=== PATIENT | female | born 1970 | race Caucasian/White ===

== ENCOUNTER 2017-10-30 07:20 | Emergency (ER) | payer BC, OTHER ==
[~2017-10-30] VITALS: Ht 165.1 cm; Wt 110.6 kg
[2017-10-30 07:20] VITALS: BP 156/79; PULSE 77; RESP 18; TEMP 97.7; O2SAT 96
[2017-10-30] MEDS ORDERED: COQ130CA (07:34)
[2017-10-30] MEDS ORDERED: ESTRTAB12 PO (07:34)
[2017-10-30] MEDS ORDERED: ONE-TAB14 (07:34)
[2017-10-30] MEDS ORDERED: SIMV40TA PO (07:34)
[2017-10-30] MEDS ORDERED: LEXA10TA PO (07:34)
[2017-10-30] MEDS ORDERED: FISHOIL PO (07:34)
[2017-10-30] MEDS ORDERED: PRED20 PO (07:43)
[2017-10-30] MEDS ORDERED: BACT800T5 PO (07:43)
--- NOTE | 2017-10-30 07:47 | PD ---
HPI Chief Complaint: Bite or Sting Time Seen by Provider: 07:37 Travel History International Travel<30 days: No Contact w/Intl Traveler<30days: No Traveled to known affect area: No History of Present Illness HPI The patient was seen and examined in the presence of the nurse. This patient is having swelling and redness and discomfort in her left arm. She was stung by a wasp 3 times in that left arm 3 days ago. In the upper arm it continues to spread. Denies fever or drainage. Symptom severity is moderate PFSH Past Medical History High Cholesterol: Yes Diminished Hearing: No Tetanus Vaccination: < 5 Years ?: Not Past Surgical History Section: Yes Hysterectomy: Yes Social History Alcohol Use: Yes (SOC) Tobacco Use: No Substance Use: No Allergies-Medications (Allergen,Severity, Reaction): Coded Allergies: No Known Allergies (Unverified , 10/30/17) Reported Meds & Prescriptions Reported Meds & Active Scripts Active Reported One Daily Multivitamin (Multivitamin) 1 Each Tablet Estroven + Energy Maximum ([employer] Natural Products) 400 Mcg Tab 400 Mg PO DAILY [Fish Oil] 1,000 Mg PO Coq10 (Coenzyme Q10 (Ubidecarenone)) 30 Mg Cap Simvastatin 40 Mg Tab 40 Mg PO HS Lexapro (Escitalopram Oxalate) 10 Mg Tab 10 Mg PO DAILY Review of Systems General / Constitutional: No: Fever HENT: No: Headaches Cardiovascular: No: Chest Pain or Discomfort Respiratory: No: Cough Physical Exam Narrative RESPIRATORY: Respiratory effort unlabored, no retractions or use of accessory muscles. Breath sounds are clear and symmetric. NECK: Symmetrical appearance, midline trachea. No mass or crepitus. Thyroid without enlargement, tenderness, or mass. Throat clear without facial swelling Left arm: There is a patch of erythema and warmth and tenderness in the left bicep. There is some swelling and redness at the left wrist with good range of motion Data Data Last Documented VS Vital Signs Date Time Temp Pulse Resp B/P (MAP) Pulse Ox O2 Delivery O2 Flow Rate FiO2 10/30/17 07:20 97.7 77 18 156/79 (104) 96 MDM Medical Decision Making Medical Screen Exam Complete: Yes Emergency Medical Condition: Yes Medical Record Reviewed: Yes Differential Diagnosis Allergic reaction, urticaria, cellulitis Narrative Course I have reviewed the patient's electronic medical record. Patient has 2 areas of swelling and local reaction to bee sting in the left arm. However the upper arm looks like it is becoming cellulitic. Is hot and spreading. Prescribed her a week of Bactrim and 5 days of prednisone and she will use antihistamine as needed. Return for worsening Diagnosis Primary Impression: Local reaction to insect sting Qualified Codes: T63.481A - Toxic effect of venom of other arthropod, accidental (unintentional), initial encounter Additional Impression: Left arm cellulitis Additional Instructions: The patient was advised to follow up with their physician and return if they worsen. Med/Other Pt SpecificInfo: Prescription(s) given Scripts Prednisone (Prednisone) 20 Mg Tab 40 MG PO DAILY, #10 TAB 0 Refills Take 40 mg (2 tablets) daily for 5 days Prov: Medardo Byrne MD 10/30/17 Sulfamethoxazole-Trimethoprim (Bactrim DS) 800-160 Mg Tab 1 TAB PO BID for Infection, #14 TAB 0 Refills Prov: Medardo Byrne MD 10/30/17 Disposition: 01 DISCHARGE HOME Condition: Stable Medardo Byrne MD Oct 30, 2017 07:47
== END 2017-10-30 07:58 | disposition home or self-care (01) ==
LOC: PHED 07:20
DX: T63.481A Toxic effect of venom of other arthropod, accidental (unintentional), initial encounter (principal); L03.114 Cellulitis of left upper limb
CPT/HCPCS: 99283